=== PATIENT | female | born 1965 | race Caucasian/White ===

== ENCOUNTER 2016-09-23 19:29 | Emergency (ER) | payer OTHER ==
[~2016-09-23] VITALS: Ht 157.5 cm; Wt 104.5 kg
[2016-09-23] MEDS ORDERED: LISI-662 PO (19:35)
[2016-09-23] MEDS ORDERED: METF500T4 PO (19:35)
[2016-09-23 19:42] LABS: GLUCOSE,POINT OF CARE 363 MG/DL (70-110)
[2016-09-23 19:51] LABS: BASOPHILS % (AUTO) 0.5 % (0.0-2.0); EOSINOPHILS % (AUTO) 1.9 % (1.0-6.0); HEMATOCRIT 40.8 % (36-46); HEMOGLOBIN 13.2 g/dL (12.0-16.0); LYMPHOCYTES # (AUTO) 1.6 K/uL (1.0-4.8); LYMPHOCYTES % (AUTO) 27.1 % (22.0-44.0); MEAN CORPUSCULAR HEMOGLOBIN 29.6 pg (26.0-34.0); MEAN CORPUSCULAR HGB CONC 32.3 G/dL (31.0-37.0); MEAN CORPUSCULAR VOLUME 92 fL (80-100); MONOCYTES # (AUTO) 0.5 K/uL (0.1-1.0); MONOCYTES % (AUTO) 9.4 % (2.0-9.0); NEUTROPHILS # (AUTO) 3.5 K/uL (1.8-7.7); NEUTROPHILS % (AUTO) 61.1 % (40.0-70.0); PLATELET COUNT (AUTO) 207 K/uL (150-450); RED BLOOD CELL COUNT(AUTO) 4.45 MIL/uL (4.00-5.20); RED CELL DISTRIBUTION WIDTH 14.7 % (11.5-14.5); WHITE BLOOD COUNT (AUTO) 5.8 K/uL (4.5-11.0)
[2016-09-23 20:03] LABS: ANION GAP 7 mmol/L (8-16); CALCIUM, TOTAL 9.8 mg/dL (8.8-10.5); CARBON DIOXIDE 31 mmol/L (22-29); CHLORIDE 98 mmol/L (98-107); CREATININE 0.93 mg/dL (0.60-1.30); GLOMERULAR FILTR. RATE CALC > 60 mL/min (>60); POTASSIUM 3.8 mmol/L (3.5-5.1); SODIUM SERUM 136 mmol/L (136-145); UREA NITROGEN, BLOOD 15 mg/dL (7-18)
[2016-09-23 20:09] LABS: ALANINE AMINOTRANSFERASE 45 U/L (12-78); ALBUMIN 3.7 g/dL (3.4-5.0); ASPARTATE AMINOTRANSFERASE 16 U/L (15-37); BILIRUBIN,TOTAL 0.3 mg/dL (0.1-1.0); TOTAL PROTEIN, SERUM 7.2 g/dL (6.4-8.2)
[2016-09-23 20:53] LABS: APPEARANCE,URINE CLEAR (CLEAR); GLUCOSE, URINE (UA) >=1000 mg/dL (NEGATIVE); KETONES,URINE TRACE mg/dL (NEGATIVE); LEUKOCYTE ESTERASE ,URINE NEGATIVE (NEGATIVE); OCCULT BLOOD,URINE NEGATIVE (NEGATIVE); PH,URINE 5.5 (5.0-8.0); PROTEIN,URINE NEGATIVE (NEGATIVE)
[2016-09-23 20:55] LABS: ADD UA MICROSCOPIC YES; RBC,URINE None Seen /HPF (0-2); SQUAMOUS EPITHELIAL CELL,UR Few /LPF (None Seen); WBC,URINE 0-2 /HPF (0-5)
[2016-09-23] MEDS: LORazepam 2 MG/ML VIAL IM ONE (21:01)
[2016-09-23] MEDS: IBUPROFEN 600 MG TABLET PO ONE (21:01)
[2016-09-23 22:08] VITALS: BP 134/79
== END 2016-09-23 22:12 | disposition home or self-care (01) ==
LOC: EMS 19:31
DX: R07.89 Other chest pain (principal); E11.65 Type 2 diabetes mellitus with hyperglycemia; R00.2 Palpitations; F41.9 Anxiety disorder, unspecified; I10 Essential (primary) hypertension
CPT/HCPCS: 36415; 71010; 80053; 80307; 81001; 81003; 82962; 84484; 85025; 93005; 96372; 99285; J2060

== ENCOUNTER 2017-03-22 10:52 | Emergency (ER) | payer OTHER ==
[~2017-03-22] VITALS: Ht 160 cm; Wt 107.7 kg
[~2017-03-22 10:52] MED LIST: LISI-662 PO; METF500T4 PO
[2017-03-22] MEDS ORDERED: AMIT10TA6 PO (10:58)
[2017-03-22] MEDS ORDERED: METF10002 PO (10:58)
[2017-03-22] MEDS ORDERED: PIOG45TA17 PO (10:58)
[2017-03-22] MEDS ORDERED: INSU100I26 SQ (10:58)
[2017-03-22] MEDS ORDERED: ASPI-1188 PO (10:58)
[2017-03-22] MEDS ORDERED: GLIP-220 PO (10:58)
[2017-03-22] MEDS ORDERED: LINA5TAB PO (10:58)
[2017-03-22] MEDS ORDERED: ATOR10TA69 PO (10:58)
[2017-03-22 11:07] LABS: GLUCOSE,POINT OF CARE 302 MG/DL (70-110)
[2017-03-22] MEDS ORDERED: ACETAMINOPHEN/CODEINE 300-30 MG TABLET PO ONE (11:45)
[2017-03-22 11:46] VITALS: BP 148/107
== END 2017-03-22 12:29 | disposition home or self-care (01) ==
LOC: EMS 10:53
DX: J20.9 Acute bronchitis, unspecified (principal); M79.1 Myalgia; E11.9 Type 2 diabetes mellitus without complications; I10 Essential (primary) hypertension
CPT/HCPCS: 71020; 82962; 99284